=== PATIENT | female | born 1960 | race Caucasian/White ===

== ENCOUNTER → 2023-11-03 | Outpatient (CLI) | payer BC ==
[2023-11-03 15:16] LABS: Basophils # (A) 0.02 X 10*3/uL (0.00-0.10); Basophils % (A) 0.5 %; Eosinophils # (A) 0.13 X 10*3/uL (0.04-0.35); Eosinophils % (A) 3.1 %; HCT 42.4 % (37.2-46.3); HGB 12.9 g/dL (12.0-15.0); Lymphocytes # (A) 1.07 X 10*3/uL (0.90-5.00); Lymphocytes % (A) 25.7 %; MCH 27.9 pg (27.0-32.0); MCHC 30.4 g/dL (32.0-37.0); MCV 91.8 FL (80.0-97.0); Mean Platelet Volume 12.7 FL (9.5-12.2); Monocytes % (A) 7.2 %; NRBC Per 100 WBC 0 X 10*3/uL (0.00-0.01); Neutrophils # (A) 2.64 X 10*3/uL (1.80-7.70); Neutrophils % (A) 63.3 %; Platelet Count 219 X 10*3/uL (140-440); RBC 4.62 X 10*6/uL (4.10-5.20); RDW 13.4 % (11.5-14.5); WBC 4.17 X 10*3/uL (4.50-10.00)
[2023-11-03 15:43] LABS: ALT 33 U/L (8-44); AST 24 U/L (13-35); Albumin 4.4 g/dL (3.8-4.9); Albumin/Globulin Ratio 1.57 Ratio (1.60-3.17); Alkaline Phosphatase 81 U/L (41-126); Amylase 62 U/L (23-121); BUN/Creat Ratio 17.89 Ratio (12.00-20.00); Blood Urea Nitrogen 16.1 mg/dL (9.0-27.0); Calcium 9.4 mg/dL (8.7-10.3); Carbon Dioxide 26.1 mmol/L (21.6-31.8); Chloride 104 mmol/L (96-109); Globulin 2.8 g/dL (1.6-3.3); Glucose 116 mg/dL (70-110); Lipase 31 U/L (14-63); Potassium 4.4 mmol/L (3.5-5.5); Sodium 143 mmol/L (135-145); Total Bilirubin 0.4 mg/dL (0.3-1.2); Total Protein 7.2 g/dL (6.2-8.2)
[2023-11-03 20:21] LABS: Clam IgE <0.10 kU/L; Codfish IgE <0.10 kU/L; Egg White IgE <0.10 kU/L; Peanut IgE <0.10 kU/L; Scallop IgE <0.10 kU/L; Shrimp IgE <0.10 kU/L; Soybean IgE <0.10 kU/L; Walnut IgE (Food) <0.10 kU/L
== END | disposition home or self-care (01) ==
LOC: LABWHC1 08:49
PROVIDERS: ATTEND Family Medicine
DX: E55.9 Vitamin D deficiency, unspecified (principal); R19.7 Diarrhea, unspecified; R79.9 Abnormal finding of blood chemistry, unspecified
CPT/HCPCS: 36415; 80053; 82150; 82306; 82785; 83036; 83690; 84443; 85025; 86003

== ENCOUNTER → 2023-11-04 | Outpatient (CLI) | payer BC ==
--- NOTE | 2023-11-05 18:50 | MM ---
Reason for Exam: Screening (asymptomatic). Last mammogram was performed 14 year(s) and 0 month(s) ago. Patient History: Menarche at age 13. First Full-Term at age 27. Postmenopausal. Risk Values: Caitlin 5 year model risk: 1.7%. NCI Lifetime model risk: 7.7%. Prior Study Comparison: 06/19/2005 Bilateral Screening Mammogram, [facility]. 09/24/2006 Bilateral Screening Mammogram, [facility]. 10/24/2009 Bilateral Screening Mammogram, [facility]. Tissue Density: The breasts are almost entirely fatty. Findings: Analyzed By CAD. The pattern is symmetrical. Couple of benign punctate calcifications are within the lower inner aspect posterior right breast. No suspicious groups of microcalcifications, spiculated or lobular masses, architectural distortion or other secondary signs of malignancy are mammographically apparent. Overall Assessment: Benign, BI-RAD 2 Management: Screening Mammogram of both breasts in 1 year. A negative mammogram report should not preclude additional follow up of suspicious palpable abnormalities. Patient should continue monthly self breast exam. A clinical breast exam by your physician is recommended on an annual basis and results should be correlated with mammographic findings. Note on Caitlin scores and lifetime risk: 1. A Caitlin score greater than 3% is considered moderate risk. If this is the case, consider specialist referral to assess eligibility for a risk reducing agent. 2. If overall lifetime risk for the development of breast cancer is 20% or higher, the patient may qualify for future screening with alternating mammogram and breast MRI. Electronically signed and approved by: Doug Moncada D.O. Radiologis
== END | disposition home or self-care (01) ==
LOC: RADMAMWWP 16:04
PROVIDERS: ATTEND Family Medicine
DX: Z12.31 Encounter for screening mammogram for malignant neoplasm of breast (principal); Z78.0 Asymptomatic menopausal state
CPT/HCPCS: 77067

== ENCOUNTER 2024-03-15 13:22 | Emergency (ER) | payer OTHER, BC ==
[2024-03-15 13:38] VITALS: PULSE 70; TEMP 97.6
--- NOTE | 2024-03-15 14:24 | ED ---
Head Injury HPI - General Chief complaint: Head Injury Stated complaint: fall,hit head Time Seen by Provider: 03/15/24 13:42 Source: patient, RN notes reviewed Mode of arrival: wheelchair Limitations: no limitations - History of Present Illness Initial comments: This is a 63-year-old female presenting for fall with head injury prior to arrival. States she was at work when she was walking down the sidewalk and got her foot caught between grass and concrete, falling onto her right outstretched hand and striking her forehead on the concrete. Patient reports she did not initially lose consciousness, got up feeling mild lightheadedness, then sat down on a bench. She then reports she lost consciousness momentarily and came to in the grass. Denies nausea, vomiting, headache, confusion, vision changes. Denies blood thinners. She is also experiencing right elbow, right wrist, and neck pain. - Related Data Allergies/Adverse reactions: Allergies Allergy/AdvReac Type Severity Reaction Status Date / Time iodine Allergy Rash/Hives Verified 03/15/24 13:31 Review of Systems ROS Statement: Those systems with pertinent positive or pertinent negative responses have been documented in the HPI. ROS Other: All systems not noted in ROS Statement are negative. Past Medical History Past Medical History: No Reported History Past Surgical History: No Surgical Hx Reported Past Psychological History: No Psychological Hx Reported Smoking Status: Never smoker Past Alcohol Use History: Rare Past Drug Use History: None Reported General Exam Limitations: no limitations General appearance: alert, in no apparent distress Head exam: Present: atraumatic, normocephalic, other (Small abrasion on right side of nasal bridge) Eye exam: Present: normal appearance, PERRL, EOMI. Absent: scleral icterus, conjunctival injection, periorbital swelling ENT exam: Present: normal exam, mucous membranes moist Neck exam: Present: normal inspection, other (C-collar present). Absent: tenderness Respiratory exam: Present: normal lung sounds bilaterally. Absent: respiratory distress, wheezes, rales, rhonchi, stridor Cardiovascular Exam: Present: regular rate, normal rhythm, normal heart sounds. Absent: systolic murmur, diastolic murmur, rubs, gallop, clicks Extremities exam: Present: normal inspection, full ROM, normal capillary refill. Absent: tenderness, pedal edema, joint swelling, calf tenderness Neurological exam: Present: alert, oriented X3, CN II-XII intact Psychiatric exam: Present: normal affect, normal mood Skin exam: Present: warm, dry, intact, normal color. Absent: rash Course Vital Signs 03/15/24 03/15/24 13:32 17:39 Temperature 97.6 F Pulse Rate 70 70 Respiratory 18 20 Rate Blood Pressure 161/69 136/83 O2 Sat by Pulse 98 96 Oximetry Medical Decision Making - Medical Decision Making Was pt. sent in by a medical professional or institution (, PA, ALUMINUM HYDROXIDE PROCESS OPERATOR, urgent care, hospital, or [facility]...) When possible be specific @ -No Did you speak to anyone other than the patient for history (EMS, parent, family, police, friend...)? What history was obtained from this source @ -No Did you review nursing and triage notes (agree or disagree)? Why? @ -I reviewed and agree with nursing and triage notes Were old charts reviewed (outside hosp., previous admission, EMS record, old EKG, old radiological studies, urgent care reports/EKG's, [facility] records)? Report findings @ -No old charts were reviewed Differential Diagnosis (chest pain, altered mental status, abdominal pain women, abdominal pain men, vaginal bleeding, weakness, fever, dyspnea, syncope, headache, dizziness, GI bleed, back pain, seizure, CVA, palpatations, mental health, musculoskeletal)? @ -Differential Musculoskeletal Concussion, intracranial bleed, skull fracture, muscular strain, contusion, ligament sprain, fracture, arthritis, septic arthritis, bursitis, cellulitis, muscle spasm, nerve compression, DVT, arterial occlusion, herpes zoster, electrolyte abnormality, tumor.... This is not meant to be in all inclusive list EKG interpreted by me (3pts min.). @ -None X-rays interpreted by me (1pt min.). @ -XRay right elbow and wrist negative for acute process CT interpreted by me (1pt min.). @ -CT brain and C-spine and facial bones revealed no acute process U/S interpreted by me (1pt. min.). @ -None done What testing was considered but not performed or refused? (CT, X-rays, U/S, labs)? Why? @ -None What meds were considered but not given or refused? Why? @ -None Did you discuss the management of the patient with other professionals (professionals i.e. , PA, ALUMINUM HYDROXIDE PROCESS OPERATOR, lab, RT, psych nurse, social media community manager, operations research director, teacher, natural resource officer, correctional case manager)? Give summary @ -No Was smoking cessation discussed for >3mins.? @ -No Was critical care preformed (if so, how long)? @ -No Were there social determinants of health that impacted care today? How? (Homelessness, low income, unemployed, alcoholism, drug addiction, transportation, low edu. Level, literacy, decrease access to med. care, intermediate, rehab)? @ -No Was there de-escalation of care discussed even if they declined (Discuss DNR or withdrawal of care, Hospice)? DNR status @ -No What co-morbidities impacted this encounter? (DM, HTN, Smoking, COPD, CAD, Cancer, CVA, ARF, Chemo, Hep., AIDS, mental health diagnosis, sleep apnea, morbid obesity)? @ -None Was patient admitted / discharged? Hospital course, mention meds given and route, prescriptions, significant lab abnormalities, going to OR and other pertinent info. @ -Discharged. This is a 63-year-old female presenting with fall with head injury prior to arrival. Patient states she had a mechanical fall where she got foot caught between grass and concrete and fell onto her outstretched right hand and struck her forehead on the concrete. Patient did not initially lose consciousness but sat down on a bench after the fall where she briefly lost consciousness. Denies blood thinners. Patient is endorsing right elbow and hand pain, as well as neck pain. Denies neurological symptoms. Neurovascularly intact. Neuro examination unremarkable. Patient declines pain medications at this time. CT brain, C-spine, and facial bones revealed no acute process. X- ray right elbow and wrist negative for acute process. Discussed negative results with patient. Concussion precautions discussed. Advised to follow-up with PCP next week for reevaluation. Patient is agreeable to plan. Case was discussed with my ED attending Dr. Kay. Patient discharged in stable condition. Undiagnosed new problem with uncertain prognosis? @ -No Drug Therapy requiring intensive monitoring for toxicity (Heparin, Nitro, Insulin, Cardizem)? @ -No Were any procedures done? @ -No Diagnosis/symptom? @ -Head injury with loss of consciousness Acute, or Chronic, or Acute on Chronic? @ -Acute Uncomplicated (without systemic symptoms) or Complicated (systemic symptoms)? @ -Uncomplicated Side effects of treatment? @ -No Exacerbation, Progression, or Severe Exacerbation? @ -No Poses a threat to life or bodily function? How? (Chest pain, [place], [place], pneumonia, PE, COPD, DKA, ARF, appy, cholecystitis, CVA, Diverticulitis, Homicidal, Suicidal, threat to staff... and all critical care pts) @ -No Disposition Clinical Impression: Head injury with loss of consciousness Disposition: HOME SELF-CARE Condition: Stable Instructions (If sedation given, give patient instructions): Concussion (ED) Additional Instructions: Please return to the Emergency Department if symptoms worsen or any other concerns. Is patient prescribed a controlled substance at d/c from ED?: No Referrals: Agustín Brewster MD [Primary Care Provider] - 1-2 days Time of Disposition: 17:19
--- NOTE | 2024-03-15 15:59 | CT ---
EXAMINATION TYPE: CT brain clarissa wo con DATE OF EXAM: 03/15/2024 COMPARISON: None HISTORY: Syncope, facial trauma, pain CT DLP: 989.5 mGycm, Automated exposure control for dose reduction was used. CONTRAST: Patient injected with 0 mL of Isovue 300. CT of the brain is performed utilizing 3 mm thick sections through the posterior fossa and 3 mm thick sections through the remaining calvarium. Study is performed within 24 hours of arrival to the hospital. No abnormal hyperdensity is present to suggest an acute intracranial hemorrhage. No mass lesion is evident. No acute infarcts are evident. Ventricles and sulci are appropriate for the patient age. Paranasal sinuses and mastoid air cells within the [id number] are clear. IMPRESSIONS: 1. No acute intracranial process. Follow-up MRI can be performed as clinically indicated. CT cervical spine. COMPARISON: None CT of the cervical spine is performed in the axial plane at 2 mm thick sections. Reconstructed image s in the coronal, and sagittal plane are reviewed on the computer. No acute fractures are evident. Vertebral body alignment is normal. There is narrowing of the C5-6 disc height. Posterior endplate spurring is present without AP spinal canal stenosis. Vertebral body heights are preserved. No spinal canal stenosis is evident. Some mild lower cervical spine foraminal narrowing is present. Lung apices within the [id number] are unremarkable. IMPRESSION: 1. No acute osseous abnormalities cervical spine. 2. Degenerative disc changes C5-6 [facility], Workstation: [facility], 03/15/2024 3:56 PM
--- NOTE | 2024-03-15 16:02 | CT ---
EXAMINATION TYPE: CT facial bones wo con DATE OF EXAM: 03/15/2024 COMPARISON: None HISTORY: Syncope, facial trauma CT DLP: 989.5 mGycm CONTRAST: 0 mL of Isovue 300 The paranasal sinuses are examined in the axial plane at 2 mm thick sections. Reconstructed images i n the coronal plane were obtained. Submandibular glands are symmetrical and unremarkable. Parotid glands appear normal. The maxillary sinuses are clear. The ethmoid air cells are clear. There is a retention cyst within the right sphenoid sinus. Small retention cyst may be within the posterior lateral left sphenoid sinu s. The visualized frontal sinuses are clear. The septum is evaluated. There is septal deviation to the left. The ostiomeatal units are patent. Zygomatic arches are intact. Greater wings of sphenoid are normal. Nasal bones are intact. Maxillary spine is intact. Temporomandibular junctions appear normal Scattered small bilateral lymph nodes are present. IMPRESSION: 1. No acute posttraumatic changes radiographically apparent. [facility], Workstation: [facility], 03/15/2024 4:00 PM
--- NOTE | 2024-03-15 16:52 | XR ---
EXAMINATION TYPE: XR elbow complete RT DATE OF EXAM: 03/15/2024 COMPARISON: None HISTORY: Pt reports fall at work. States she hit forehead on concrete after catching foot between gra ss and concrete. Believes she had brief LOC. Denies blood thinners. Denies n/v, headache, confusion, or vision changes. Reports feeling shaky. Pt c/o R elbow, R wrist, and neck pain. TECHNIQUE: 3 view right elbow FINDINGS: Anterior fat pad is normal. No elevation of posterior fat pad is evident. Radius aligns nor mendel with the humerus. No acute fractures or dislocations evident. Follow up exams can be performed 7-10 days from acute trauma for continued pain. IMPRESSION: 1. No acute osseous abnormality right elbow [facility], Workstation: [facility], 03/15/2024 4:50 PM
--- NOTE | 2024-03-15 16:53 | XR ---
EXAMINATION TYPE: XR wrist complete RT DATE OF EXAM: 03/15/2024 COMPARISON: None HISTORY: Pt reports fall at work. States she hit forehead on concrete after catching foot between gra ss and concrete. Believes she had brief LOC. Denies blood thinners. Denies n/v, headache, confusion, or vision changes. Reports feeling shaky. Pt c/o R elbow, R wrist, and neck pain. TECHNIQUE: 4 view right wrist FINDINGS: Soft tissues appear normal. No acute fractures or dislocations evident. Joint spaces are pr eserved. Follow up exams can be performed 7-10 days from acute trauma for continued pain. Nuclear medicine bon e scan can be performed if there is pain at the anatomic snuffbox. IMPRESSION: 1. No acute osseous abnormality right wrist. [facility], Workstation: [facility], 03/15/2024 4:51 PM
[2024-03-15 17:41] VITALS: BP 136/83; RESP 20
== END 2024-03-15 17:41 | disposition home or self-care (01) ==
LOC: EC 13:22
CPT/HCPCS: 70450; 70486; 72125; 99284

== ENCOUNTER → 2024-03-16 | Outpatient (CLI) | payer OTHER ==
--- NOTE | 2024-03-16 15:59 | XR ---
EXAMINATION TYPE: XR knee complete 6 views bilateral DATE OF EXAM: 03/16/2024 COMPARISON: NONE HISTORY: 63-year-old female pain after fall yesterday. S80.01XA, S80.02XA TECHNIQUE: 3 views each side FINDINGS: There is tricompartmental degenerative spurring on both sides. Possible trace joint effusio ns. Extensive mechanisms appear intact. No acute fracture, subluxation, dislocation. 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 Trace knee joint effusions may be reactive. No acute osseous abnormality seen. If symptoms persist or if concern for internal derang ement or occult osseous injury, MRI can be considered. [facility], , 03/16/2024 3:57 PM
== END | disposition home or self-care (01) ==
LOC: RADXRMAIN 14:23
PROVIDERS: ATTEND Emergency Medicine
DX: S80.01XA Contusion of right knee, initial encounter (principal); S80.02XA Contusion of left knee, initial encounter; M17.0 Bilateral primary osteoarthritis of knee

== ENCOUNTER → 2024-03-23 | Outpatient (CLI) | payer OTHER ==
--- NOTE | 2024-03-23 14:55 | XR ---
EXAMINATION TYPE: XR elbow complete RT DATE OF EXAM: 03/23/2024 2:26 PM COMPARISON: None. CLINICAL INDICATION: Female, 63 years old with history of S53.401D, S63.501D, TECHNIQUE: XR elbow complete RT view(s) obtained. FINDINGS: There is a subtle fracture of the radial neck. Mild elevation of the anterior and posterior fat pads present. No additional fractures evident. Radius aligns normally margins. IMPRESSION: 1. Subtle fracture at the radial neck adjacent to the radial head. [facility], , 03/23/2024 2:53 PM
--- NOTE | 2024-03-23 15:36 | XR ---
EXAMINATION TYPE: XR wrist complete RT DATE OF EXAM: 03/23/2024 2:27 PM COMPARISON: None. CLINICAL INDICATION: Female, 63 years old with history of S53.401D, S63.501D, TECHNIQUE: XR wrist complete RT 4 view(s) obtained. FINDINGS: No acute fractures or dislocations evident. Joint spaces are preserved. Soft tissues appear normal. T here appears to be a small cyst within the scaphoid. If there is pain at the anatomic snuff box, nuclear medicine bone scan would be recommended for addit ional evaluation. Follow up exams can be performed 7-10 days from acute trauma for continued pain. IMPRESSION: 1. No acute osseous abnormality right wrist. [facility], , 03/23/2024 3:34 PM
== END | disposition home or self-care (01) ==
LOC: RADXRMAIN 13:40
PROVIDERS: ATTEND Emergency Medicine
DX: S53.401D Unspecified sprain of right elbow, subsequent encounter (principal); S63.501D Unspecified sprain of right wrist, subsequent encounter